=== PATIENT | female | born 1975 | race Caucasian/White ===

== ENCOUNTER 2016-08-03 16:13 | Outpatient (CLI) | payer OTHER | END 2016-08-03 16:14 | disposition home or self-care (01) | LOC: NAVSJIPCSP 16:13 | PROVIDERS: ATTEND Internal Medicine | DX: R10.31 Right lower quadrant pain (principal) | CPT/HCPCS: 87086 ==

== ENCOUNTER 2016-10-12 16:35 | Outpatient (CLI) | payer OTHER ==
[2016-10-12 17:30] LABS: #Basophils 0.2 thou/uL (0.0-0.2); #Eosinphils 0.8 thou/uL (0.0-0.7); #Lymphocytes 4.5 thou/uL (1.20-3.40); #Monocytes 0.8 thou/uL (0.11-0.59); #Neutrophils 6.2 thou/uL (1.40-6.50); %Basophils 1.4 % (0.0-1.0); %Eosinophils 6.1 % (0.0-10.0); %Lymphocytes 36.1 % (21.0-51.0); %Monocytes 6.4 % (0.0-10.0); Hemoglobin 12.2 g/dL (12.0-16.0); Mean Corpuscular HGB CONC 34.8 g/dL (32.0-36.0); Mean Corpuscular Hemoglobin 33.2 pg (27.0-31.0); Mean Corpuscular Volume 95.5 fl (81.0-99.0); Mean Platelet Volume 9.1 fL (7.4-10.4); Platelet Count 239 thou/uL (130-400); RBC Distribution Width 11.5 % (11.5-14.5); Red Blood Cell (RBC) Count 3.66 mill/uL (4.20-5.40); White Blood Cell (WBC) Count 12.4 thou/uL (4.8-10.8)
[2016-10-12 17:42] LABS: ALT (SGPT) 18 U/L (8-55); AST (SGOT) 18 U/L (5-34); Albumin 4.1 g/dL (3.5-5.0); Alkaline Phosphatase 55 U/L (40-150); Anion Gap 15 mmol/L (10-20); BUN (Urea Nitrogen) 13 mg/dL (7.0-18.7); Bilirubin, Total 0.5 mg/dL (0.2-1.2); Calc. Creatinine Clearance 0 mL/min (70-130); Calcium 8.8 mg/dL (7.8-10.44); Carbon Dioxide 22 mmol/L (22-29); Cardiac Risk 2.7 (Less than 4.5); Chloride 103 mmol/L (98-107); Cholesterol 172 mg/dl (< 200 Desired); Estimated GFR-MDRD 80; Globulin 2.7 g/dL (2.4-3.5); Glucose 85 mg/dL (70-105); HDL Cholesterol 64 mg/dL (>60 Neg Risk); LDL Cholesterol, Calculated 95 mg/dL; Potassium 3.6 mmol/L (3.5-5.1); Protein, Total 6.8 g/dL (6.0-8.3); Sodium 136 mmol/L (136-145); Triglycerides 64 mg/dL (Less than 150)
[2016-10-12 18:03] LABS: Bilirubin Negative (Negative); Blood, Urine Moderate (Negative); Clarity Clear (Clear); Glucose, Urine (Dipstick) Negative (Negative); Leukocyte Negative (Negative); Nitrite Negative (Negative); Protein, Urine (Dipstick) Negative (Neg-Trace); Urobilinogen 0.2 mg/dL (0.2-1.0)
[2016-10-12 18:06] LABS: Bacteria/HPF Rare-Few HPF (None Seen); Squamous Epithelial 0-3 HPF (0-3); WBC/HPF 0-3 HPF (0-3)
== END 2016-10-12 16:36 | disposition home or self-care (01) ==
LOC: NAVSJIPCSP 16:35
PROVIDERS: ATTEND Internal Medicine
DX: N39.0 Urinary tract infection, site not specified (principal); E28.39 Other primary ovarian failure
CPT/HCPCS: 36415; 80053; 80061; 81003; 81015; 84443; 85025

== ENCOUNTER 2017-07-22 12:15 | Emergency (ER) | payer BC, OTHER ==
[2017-07-22] MEDS ORDERED: Ondansetron ODT 4 MG TAB ONE (13:21)
[2017-07-22] MEDS ORDERED: Ketorolac Tromethamine 30 MG/ML VIAL ONE (13:21)
[2017-07-22] MEDS ORDERED: Lidocaine 1% 20 ML MDV ONE (13:30)
[2017-07-22] MEDS ORDERED: Adacel (T-DAP) 0.5 ML VIAL ONE (13:38)
--- NOTE | 2017-07-22 13:52 | RAD ---
THREE VIEWS OF THE LEFT SMALL AND RING FINGER: COMPARISON: None. HISTORY: Fall with finger pain. FINDINGS: Three views of the left small and ring fingers show no evidence of acute fracture or dislocation. No focal soft tissue swelling is seen. No degenerative changes are present. IMPRESSION: No evidence of acute osseous abnormality. POS: [facility]
--- NOTE | 2017-07-22 13:56 | RAD ---
THREE VIEWS LUMBOSACRAL SPINE: COMPARISON: 06/14/12. HISTORY: Fall with left arm pain and back pain. FINDINGS: Three views of the lumbosacral spine show normal height and alignment of the vertebral bodies without fracture or subluxation. There is mild narrowing of the L5-S1 intervertebral disk with mild posteri or facet arthrosis at this level. Cholecystectomy clips are seen. IMPRESSION: No evidence of acute osseous abnormality. POS: [facility]
== END 2017-07-22 14:00 | disposition home or self-care (01) ==
LOC: NAV ERS 12:15
DX: S01.112A Laceration without foreign body of left eyelid and periocular area, initial encounter (principal); S81.812A Laceration without foreign body, left lower leg, initial encounter; S81.811A Laceration without foreign body, right lower leg, initial encounter; S39.012A Strain of muscle, fascia and tendon of lower back, initial encounter; S63.615A Unspecified sprain of left ring finger, initial encounter; E11.9 Type 2 diabetes mellitus without complications; F41.9 Anxiety disorder, unspecified; F17.210 Nicotine dependence, cigarettes, uncomplicated; Z79.899 Other long term (current) drug therapy; W54.8XXA Other contact with dog, initial encounter
CPT/HCPCS: 12011; 72100; 90471; 90715; 96372; J1885; J2001; Q0162

== ENCOUNTER 2019-01-02 15:05 | Outpatient (CLI) | payer BC ==
[~2019-01-02 15:05] MED LIST: Iopamidol 370 76% 100 ML VIAL ONE
--- NOTE | 2019-01-02 18:06 | CT ---
CT ABDOMEN AND PELVIS WITH IV CONTRAST: 01/02/18 HISTORY: Abdominal pain, gastroparesis. COMPARISON: None. FINDINGS: The visualized lung bases are clear. Post cholecystectomy changes are noted. A subcentimeter too small to characterize hypodense lesion is seen in the left hepatic lobe as well a s an additional focus in the posterior segment of the right hepatic lobe which are too small to joleen cterize. The spleen, pancreas, bilateral adrenal glands, right kidney, abdominal aorta, and urinary bladder de monstrate a normal CT appearance. A subcentimeter too small to characterize hypodense lesion is seen in the mid portion left kidney. There is a pessary device seen within the vagina. The uterus is either small or surgically absent. Opacified small bowel has a normal appearance. No dilated loops of small bowel are visualized. The appendix is visualized and normal in caliber. No free fluid, fluid collection, or lymphadenopathy is seen in the abdomen or pelvis. IMPRESSION: 1. No acute findings in the abdomen or pelvis. 2. Subcentimeter too small to characterize hypodense lesions in each lobe of the liver as well a s in left kidney. 3. Evidence of hysterectomy with pessary device in place. POS: [facility]
== END 2019-01-02 15:06 | disposition home or self-care (01) ==
LOC: NAV CT 15:05
PROVIDERS: ATTEND Internal Medicine
DX: K31.84 Gastroparesis (principal); R93.2 Abnormal findings on diagnostic imaging of liver and biliary tract; R93.422 Abnormal radiologic findings on diagnostic imaging of left kidney; Z90.710 Acquired absence of both cervix and uterus
CPT/HCPCS: 74177; Q9967

== ENCOUNTER 2020-03-05 12:34 | Emergency (ER) | payer BC ==
[2020-03-05 13:18] LABS: Bilirubin Small (Negative); Blood, Urine Large (Negative); Clarity Cloudy (Clear); Glucose, Urine (Dipstick) Negative (Negative); Ketone, Urine Trace mg/dL (Negative); Leukocyte Small (Negative); Nitrite Negative (Negative); Protein, Urine (Dipstick) 100 mg/dL (Neg-Trace); Urobilinogen 0.2 mg/dL (Less than 2); pH, Urine 5.5 (5.0-9.0)
[2020-03-05 13:25] LABS: Bacteria/HPF Rare-Few HPF (None Seen); RBC/HPF Greater than 50 HPF (0-3)
[2020-03-05] MEDS ORDERED: cefTRIAXone\\ROCEPHIN 1 GM VIAL ONE (13:43)
[2020-03-05] MEDS ORDERED: Lidocaine 1% (PF) 30 ML VIAL ONE (13:43)
[2020-03-05 14:15] LABS: Pregnancy Test - Urine (BHCG) Negative (Negative); Pregu Control Background? CLEAR/WHITE (CLR/WHITE); Pregu Control Bar Appear? YES (CONTROL BAR)
== END 2020-03-05 13:59 | disposition home or self-care (01) ==
LOC: NAV ERS 12:34
DX: N39.0 Urinary tract infection, site not specified (principal); E11.9 Type 2 diabetes mellitus without complications; F41.9 Anxiety disorder, unspecified; F17.210 Nicotine dependence, cigarettes, uncomplicated; Z79.899 Other long term (current) drug therapy
CPT/HCPCS: 81003; 81015; 81025; 87086; 96372; 99284; J0696; J2001